=== PATIENT | male | born 1960 | race Caucasian/White ===

== ENCOUNTER 2020-07-15 09:42 | Outpatient (CLI) | payer OTHER, SELFPAY ==
[2020-07-15 10:44] LABS: SARS-CoV-2 Ag Positive (Negative)
[2020-07-15 11:06] LABS: SARS-CoV-2 RNA PCR Positive (Negative)
== END 2020-07-15 09:43 | disposition home or self-care (01) ==
LOC: CHSLAB 09:47
PROVIDERS: PCP Family Medicine; Visit Provider Family Medicine
DX: U07.1 COVID-19 (principal)
CPT/HCPCS: 87426; C9803; U0003; U0005